=== PATIENT | female | born 1955 | race Caucasian/White ===

== ENCOUNTER 2021-12-10 05:29 | Day surgery (SDC) | payer MEDICARE ==
[~2021-12-10] VITALS: Ht 158 cm; Wt 45.0 kg
[~2021-12-10 05:29] MED LIST: CIPRO500 MG PO; FEOSOL325 MG PO; MEDROL 4MG DOSEP4 MG PO; MOBIC7.5 MG PO; TAMIFLU 75MG CA75 MG PO; VENTOLIN HFA IN18 GM INH
[2021-12-11 07:01] LABS: BASOPHIL 0.2 % (0-2); EOSINOPHIL 0.1 % (0-7); HCT 28.5 % (37.0-47.0); HGB 9.4 g/dl (12.5-16.0); LYMPHOCYTE 12.3 % (15-48); MCH 30.8 pg (25.0-31.0); MCV 93.4 fL (78.0-100.0); MONOCYTE 8.7 % (0-12); MPV 10.4 fL (6.0-9.5); NEUTROPHIL 78.3 % (41-80); NRBC 0; PLT 221 K/uL (150-400); RBC 3.05 M/uL (4.20-5.40); RDW 12.9 % (11.5-14.0); WBC 8.5 K/uL (4.0-10.5)
[2021-12-11 07:44] LABS: BUN/CREAT RATIO (CALC) 17.9 RATIO; CREATININE 0.67 mg/dL (0.51-0.95); POTASSIUM 4.6 mmol/L (3.5-5.1)
--- NOTE | 2021-12-11 08:40 | NUR ---
PT HAD A LTKR ON 12/10/21. PT WILL D/C HOME ON 12/11/21 WITH SOPUSE. [facility] DELIVERED A RW. PT. REQUESTED [facility] FOR PT. [facility] ACCEPTED PT.
[2021-12-11] MEDS ORDERED: FEOSOL325 MG PO (08:56)
[2021-12-11] MEDS ORDERED: OXYCODONE-ACET1 EAC1 PO (08:56)
[2021-12-11] MEDS ORDERED: XARELTO10 MG PO (08:56)
== END 2021-12-11 12:20 | disposition home or self-care (01) ==
LOC: FAS 05:29 → FOFB 05:29 → FAS 07:00 → FOFB 09:32 → FAS 12-11 12:20
PROVIDERS: Legal Medicine
DX: M17.12 Unilateral primary osteoarthritis, left knee (principal); Z86.73 Personal history of transient ischemic attack (TIA), and cerebral infarction without residual deficits; Z79.1 Long term (current) use of non-steroidal anti-inflammatories (NSAID); Z88.2 Allergy status to sulfonamides
CPT/HCPCS: 36415; 73560; 80048; 85025; 86850; 86900; 86901; 94010; 97162; 97166; 97530-GP; 97535; C1713; C1776; J0171; J0697; J1100; J1885; J2250; J2270; J2405; J2704; J2795; J3010; J7120